=== PATIENT | female | born 1950 | race African-American/Black ===

== ENCOUNTER → 2016-03-12 | Outpatient (CLI) | payer MEDICARE, OTHER ==
--- NOTE | 2016-03-12 18:10 | WOMENS IMAGING REPORT ---
EXAM DESCRIPTION: BILAT SCREENING MAMMO W/CAD COMPLETED DATE/TIME: 03/12/2016 11:11 am REASON FOR STUDY: Z12.31 ROUTINE SCREENING MAMMO Z12.31 ENCNTR SCREEN MAMMOGRAM FOR MALIGNANT NEOPL ASM OF [place] COMPARISON: Multiple since 2008 TECHNIQUE: Standard craniocaudal and mediolateral oblique views of each breast recorded using [place] l acquisition. LIMITATIONS: None. FINDINGS: Findings present which are benign by mammographic criteria. No suspicious masses, calcifi cations or architectural distortion. Read with the assistance of CAD. .[facility] - R2 Cenova Version 1.3 .[facility] Imaging - R2 Cenova Version 1.3 .[facility] - R2 Cenova Version 2.4 .[facility] [place] - R2 Cenova Version 2.4 .[facility] - R2 Software Product Manager Version 9.2 Benign mammographic findings may include one or more of the following: Smooth masses, popcorn/rim/co arse calcifications, asymmetries, post-procedure changes, and lesions with long-standing stability. BREAST DENSITY: b. There are scattered areas of fibroglandular density. BIRAD: 2 BENIGN FINDING(S) RECOMMENDATION: ROUTINE SCREENING COMMENT: PATIENT NOTIFIED BY LETTER. The [employer] recommends an annual screening mammogram for women aged 40 years or over. Each patient will receive a reminder prior to the anniversary date of her mammogram. The [employer] (ACR) has developed recommendations for screening MRI of the breast s in certain patient populations, to be used in conjunction with mammography. Breast MRI surveillanc e may be appropriate for women with more than 20% lifetime risk of developing breast cancer as deter mined by genetic testing, significant family history of the disease, or history of mantle radiation f or Hodgkins Disease. ACR Practice Guidelines 2008. TECHNICAL DOCUMENTATION: FINDING NUMBER: (1) ASSESSMENT: (1) JOB ID: [id number] [employer]- All Rights Reserved
== END ==
LOC: WI 10:52
PROVIDERS: ATTEND Physician Assistant
DX: Z12.31 Encounter for screening mammogram for malignant neoplasm of breast (principal)
CPT/HCPCS: 77067; G0202

== ENCOUNTER → 2017-06-23 | Outpatient (CLI) | payer MEDICARE, OTHER ==
--- NOTE | 2017-06-24 09:03 | WOMENS IMAGING REPORT ---
EXAM DESCRIPTION: 3D SCREENING MAMMO BILAT COMPLETED DATE/TIME: 06/23/2017 11:08 am REASON FOR STUDY: SCREENING MAMMO Z12.31 ENCNTR SCREEN MAMMOGRAM FOR MALIGNANT NEOPLASM OF [place] COMPARISON: Multiple since 2008 TECHNIQUE: Standard craniocaudal and mediolateral oblique views of each breast recorded using digita l acquisition and breast tomosynthesis. LIMITATIONS: None. FINDINGS: Findings present which are benign by mammographic criteria. No suspicious masses, calcifi cations or architectural distortion. Pertinent benign findings: Benign calcifications bilaterally Read with the assistance of CAD. .[facility] - R2 Cenova Version 1.3 .[facility] Imaging - R2 Cenova Version 1.3 .[facility] - R2 Cenova Version 2.4 .[facility] [place] - R2 Cenova Version 2.4 .[facility] - R2 Vacuum Frame Operator Version 9.2 Benign mammographic findings may include one or more of the following: Smooth masses, popcorn/rim/co arse calcifications, asymmetries, post-procedure changes, and lesions with long-standing stability. IMPRESSION: BENIGN MAMMOGRAPHIC FINDINGS. BIRADS 2 BREAST DENSITY: b. There are scattered areas of fibroglandular density. BIRAD: 2 BENIGN FINDING(S) RECOMMENDATION: RECOMMENDATION: ROUTINE SCREENING Please continue yearly bilateral screening mammography/tomosynthesis in June 2018 COMMENT: The patient has been notified of the results by letter per SA requirements. Additional no tification policies are in place for contacting patient with suspicious or incomplete findings. Quality ID #[id number]: The [employer] recommends an annual screening mammogram for women aged 40 years or over. This facility utilizes a reminder system to ensure that all patients receive reminder letters, and/or direct phone calls for appointments. This includes reminders for routine scr eening mammograms, diagnostic mammograms, or other Breast Imaging Interventions when appropriate. Th is patient will be placed in the appropriate reminder system. The [employer] (ACR) has developed recommendations for screening MRI of the breast s in certain patient populations, to be used in conjunction with mammography. Breast MRI surveillanc e may be appropriate for women with more than 20% lifetime risk of developing breast cancer as deter mined by genetic testing, significant family history of the disease, or history of mantle radiation f or Hodgkins Disease. ACR Practice Guidelines 2008. DBT Technology DBT is a type of tomographic mammography. With conventional mammography, overlapping breast tissue ma y make lesions difficult to detect, even with good compression. DBT uses an x-ray tube that rotates a round the breast, taking images at different angles. These images are then combined to create thin sl ices of the breast that the radiologist can view as a 3D reconstruction. The LUX Assure unit can perform full-field digital mammograms (2D imaging); or DBT (3D imaging); or both, in a combination mode that quickly performs both the mammogram and the tomosynthesis scan while the breast is still compressed. PQRS 6045F: Fluoroscopic imaging is not utilized for breast tomosynthesis. TECHNICAL DOCUMENTATION: FINDING NUMBER: (1) ASSESSMENT: (1) JOB ID: [id number] [email or web address]- All Rights Reserved Reading location - IP/workstation name: [email or web address]
== END ==
LOC: WI 10:10
PROVIDERS: ATTEND Physician Assistant
DX: Z12.31 Encounter for screening mammogram for malignant neoplasm of breast (principal)
CPT/HCPCS: 77063; 77067

== ENCOUNTER 2018-02-09 20:23 | Emergency (ER) | payer MEDICARE, OTHER ==
[2018-02-09] MEDS ORDERED: ADENOSINE INJ/PF 6 MG/2 ML SDV IV ONE (21:05)
--- NOTE | 2018-02-09 21:06 | ER Document Report ---
ED General - General Chief Complaint: Palpitations Stated Complaint: POSSIBLE HIGH BLOOD PRESSURE Time Seen by Provider: 02/09/18 20:59 Mode of Arrival: Ambulatory Information source: Patient Notes: 67-year-old female with a history of hypertension, diabetes who presents to the emergency room with palpitations beginning at 6:45 PM tonight. Patient denies chest pain or shortness of breath. She was watching TV at the time. She does state she had an episode yesterday that lasted for a short period of time. TRAVEL OUTSIDE OF THE [place] IN LAST 30 DAYS: No - HPI Onset: Just prior to arrival Onset/Duration: Sudden Quality of pain: No pain Severity: None Pain Level: Denies Associated symptoms: denies: Chest pain, Fever, Shortness of breath Exacerbated by: Denies Relieved by: Denies Similar symptoms previously: Yes Recently seen / treated by doctor: No - Related Data Allergies/Adverse Reactions: No Known Allergies Allergy (Unverified 03/28/12 11:32) Past Medical History - General Information source: Patient - Social History Smoking Status: Never Smoker Cigarette use (# per day): No Chew tobacco use (# tins/day): No Frequency of alcohol use: None Drug Abuse: None Lives with: Family Family History: None Patient has suicidal ideation: No Patient has homicidal ideation: No - Past Medical History Cardiac Medical History: Reports: Hx Hypertension Denies: Hx Heart Attack Pulmonary Medical History: Denies: Hx Asthma EENT Medical History: Reports: Eyes - Cataract surgery Neurological Medical History: Denies: Hx Cerebrovascular Accident, Hx Seizures Endocrine Medical History: Reports: Hx Diabetes Mellitus Type 2 Renal/ Medical History: Reports: None Malignancy Medical History: Reports: None GI Medical History: Reports: None. Denies: Hx Hepatitis, Hx Hiatal Hernia, Hx Ulcer Musculoskeletal Medical History: Reports None Psychiatric Medical History: Reports: None Infectious Medical History: Reports: None. Denies: Hx Hepatitis Past Surgical History: Reports: Hx Hysterectomy. Denies: Hx Mastectomy, Hx Open Heart Surgery, Hx Pacemaker Review of Systems - Review of Systems Constitutional: denies: Chills, Fever EENT: No symptoms reported Cardiovascular: See HPI, Palpitations, Heart racing. denies: Chest pain Respiratory: No symptoms reported Gastrointestinal: No symptoms reported Genitourinary: No symptoms reported Female Genitourinary: No symptoms reported Musculoskeletal: No symptoms reported Skin: No symptoms reported Hematologic/Lymphatic: No symptoms reported Neurological/Psychological: No symptoms reported Physical Exam - Vital signs Vitals: Temp Pulse Resp BP Pulse Ox 97.7 F 145 H 20 149/101 H 95 02/09/18 20:28 02/09/18 20:28 02/09/18 20:28 02/09/18 20:28 02/09/18 20:28 Notes: Physical exam: GENERAL: She is alert and oriented x3. Her blood pressure is 149/101. Her pulse is 145-150.. HEAD: Atraumatic, normocephalic. EYES: Pupils equal round and reactive to light, extraocular movements intact, sclera anicteric, conjunctiva are normal. ENT: TMs normal, nares patent, oropharynx clear without exudates. Moist mucous membranes. NECK: Normal range of motion, supple without obvious mass or JVD. LUNGS: Breath sounds clear to auscultation bilaterally and equal. No wheezes rales or rhonchi. HEART: Tachycardia, no obvious murmur. ABDOMEN: Soft, normoactive bowel sounds. No tenderness to palpation. No guarding, no rebound. No masses appreciated. EXTREMITIES: Normal range of motion, no pitting or edema. No clubbing or cyanosis. NEUROLOGICAL: Cranial nerves II through XII grossly intact. Normal speech, moving all extremities. PSYCH: Normal mood, normal affect. SKIN: Warm, Dry, normal turgor, no rashes or lesions noted. Course - Vital Signs Vital signs: Temp Pulse Resp BP Pulse Ox 97.7 F 145 H 37 H 182/96 H 91 L 02/09/18 20:28 02/09/18 20:28 02/09/18 23:04 02/09/18 23:14 02/09/18 23:04 - Laboratory Result Diagrams: 02/09/18 21:15 02/09/18 21:15 Laboratory results interpreted by me: 02/09/18 02/09/18 21:15 21:15 RDW 14.3 H Carbon Dioxide 21 L Glucose 309 H Creatine Kinase 204 H - Diagnostic Test Radiology reviewed: Image reviewed, Reports reviewed - cxr: no infiltrates. Procedures - Additional Procedures Cardioversion Time performed: 21:31 Additional Procedures: Cardioversion/defib Notes: 02/09/18 21:31 Valsalva maneuver attempted without success. Adenosine 6 mg IV push: With conversion to normal sinus rhythm. Patient currently without pain, shortness of breath. Blood pressure stable. Repeat EKG shows normal sinus rhythm with a ventricular rate of 92, no acute ST- T wave changes Discharge - Discharge Clinical Impression: SVT Condition: Stable Disposition: HOME, SELF-CARE Instructions: Paroxysmal Supraventricular Tachycardia ([facility]) Additional Instructions: As we discussed, your labs look good. Were given a medicine to slow the heart rate and it worked to bring your rhythm back to normal. I did discuss the lab work with Dr. Singleton and he wants you to go to the office first thing in the morning. Return to the emergency room for any chest pain, shortness of breath or worsening palpitations. Referrals: RODNEY SINGLETON MD [Primary Care Provider] - Follow up tomorrow (Dr. Singleton wants you to come to the office first thing in the morning.)
[2018-02-09 21:23] LABS: ABSOLUTE BASOPHILS # (AUTO) 0.1 10^3/uL (0.0-0.2); ABSOLUTE EOSINOPHILS # (AUTO) 0.1 10^3/uL (0.0-0.6); ABSOLUTE LYMPHOCYTES (AUTO) 3.2 10^3/uL (0.5-4.7); ABSOLUTE MONOCYTES (AUTO) 0.8 10^3/uL (0.1-1.4); ABSOLUTE NEUT (AUTO) 5.7 10^3/uL (1.7-8.2); EOSINOPHILS % (AUTO) 0.9 % (0-6); HEMATOCRIT 38.9 % (36.0-47.0); HEMOGLOBIN 13.1 g/dL (12.0-15.5); LYMPHOCYTES % (AUTO) 32.6 % (13-45); MEAN CORPUSCULAR HGB CONC 33.8 g/dL (32.0-36.0); MEAN CORPUSCULAR VOLUME 80 fl (80-97); MONOCYTES % (AUTO) 7.6 % (3-13); PLATELET COUNT 383 10^3/uL (150-450); RED BLOOD COUNT 4.87 10^6/uL (3.72-5.28); RED CELL DISTRIBUTION WIDTH 14.3 % (11.5-14.0); SEGMENTED NEUTROPHILS % (AUTO) 57.9 % (42-78); TOTAL CELLS COUNTED % (AUTO) 100 %; WHITE BLOOD COUNT 9.9 10^3/uL (4.0-10.5)
[2018-02-09] MEDS ORDERED: NORMAL SALINE 1000 ML 1,000 ML IV ONE (21:26)
[2018-02-09] MEDS ORDERED: METOPROLOL TARTRATE PF/INJ 5 MG/5 ML SDV IV ONE (21:33)
--- NOTE | 2018-02-09 21:38 | RADIOLOGY REPORT (SQ) ---
XR CHEST 1 VIEW HISTORY: Palpitations. COMPARISON: 03/21/2015 FINDINGS: The heart size is mildly enlarged. The lungs are clear. No pleural effusion or pneumothorax is identified. IMPRESSION: No acute cardiopulmonary abnormality.
[2018-02-09 21:47] LABS: ALANINE AMINOTRANSFERASE 31 U/L (9-52); ALBUMIN 4.5 g/dL (3.5-5.0); ALKALINE PHOSPHATASE 85 U/L (38-126); ANION GAP 13 (5-19); ASPARTATE AMINO TRANSFERASE 33 U/L (14-36); BILIRUBIN,DIRECT 0.2 mg/dL (0.0-0.4); BILIRUBIN,TOTAL 0.3 mg/dL (0.2-1.3); BLOOD UREA NITROGEN 14 mg/dL (7-20); CALCIUM 9.2 mg/dL (8.4-10.2); CARBON DIOXIDE 21 mmol/L (22-30); CHLORIDE 107 mmol/L (98-107); CREATINE KINASE 204 U/L (30-135); GLUCOSE 309 mg/dL (75-110); POTASSIUM 3.8 mmol/L (3.6-5.0); SODIUM 141.1 mmol/L (137-145); TOTAL PROTEIN 7.4 g/dL (6.3-8.2)
[2018-02-09 21:58] LABS: CREATINE KINASE MB 1.77 ng/mL (<4.55)
[2018-02-09 21:59] LABS: TROPONIN I < 0.012 ng/mL
[2018-02-09 22:04] LABS: FREE T3 3.24 pg/mL (2.77-5.27); FREE T4 (FREE THYROXINE) 1.12 ng/dL (0.78-2.19)
[2018-02-09 22:18] LABS: THYROID STIMULATING HORMONE 2.67 uIU/mL (0.47-4.68)
[2018-02-09 23:15] VITALS: BP 182/96
--- NOTE | 2018-02-10 07:50 | EKG REPORT ---
SEVERITY:- ABNORMAL ECG - SINUS RHYTHM PROBABLE INFERIOR INFARCT, AGE INDETERMINATE : Confirmed by: Lorne Robles MD 10-Feb-2018 07:49:14
--- NOTE | 2018-02-10 07:51 | EKG REPORT ---
SEVERITY:- ABNORMAL ECG - JUNCTIONAL TACHYCARDIA REPOLARIZATION ABNORMALITY, PROB RATE RELATED : Confirmed by: Lorne Robles MD 10-Feb-2018 07:49:30
== END 2018-02-09 23:28 | disposition home or self-care (01) ==
LOC: ER 20:23
DX: I47.1 Supraventricular tachycardia (principal); R00.2 Palpitations; I10 Essential (primary) hypertension; E11.9 Type 2 diabetes mellitus without complications
CPT/HCPCS: 93005; 99285; 96374; 96375; 36415; 84439; 82553; 82550; 84443; 85025; 80053; 84484; 84481; 71045; 93010; J3490; J7030; J0153

== ENCOUNTER → 2018-08-05 | Outpatient (CLI) | payer MEDICARE, OTHER ==
--- NOTE | 2018-08-11 14:08 | WOMENS IMAGING REPORT ---
EXAM DESCRIPTION: 3D SCREENING MAMMO BILAT COMPLETED DATE/TIME: 08/05/2018 11:21 am REASON FOR STUDY: Z12.31 ROUTINE 3D BILATERAL SCREENING Z12.31 ENCNTR SCREEN MAMMOGRAM FOR MALIGNAN T NEOPLASM OF [place] COMPARISON: Multiple since 2008 EXAM PARAMETERS: Views: Standard craniocaudal and mediolateral oblique views of each breast recorded using digital acquisition and breast tomosynthesis. Read with the assistance of CAD. .[facility] - [employer] Operator Version 9.2 LIMITATIONS: None. FINDINGS: No suspicious masses, suspicious calcifications or architectural distortion. No areas of c oncern. IMPRESSION: NEGATIVE MAMMOGRAM. BIRADS 1. BREAST DENSITY: b. There are scattered areas of fibroglandular density. BIRAD: ASSESSMENT: 1 NEGATIVE RECOMMENDATION: ROUTINE SCREENING COMMENT: The patient has been notified of the results by letter per MQSA requirements. Additional no tification policies are in place for contacting patient with suspicious or incomplete findings. Quality ID #225: The [employer] recommends an annual screening mammogram for women aged 40 years or over. This facility utilizes a reminder system to ensure that all patients receive reminder letters, and/or direct phone calls for appointments. This includes reminders for routine scr eening mammograms, diagnostic mammograms, or other Breast Imaging Interventions when appropriate. Th is patient will be placed in the appropriate reminder system. TECHNICAL DOCUMENTATION: FINDING NUMBER: (1) ASSESSMENT: (1) JOB ID: [id number] [employer]- All Rights Reserved Reading location - IP/workstation name: [email or web address]
== END ==
LOC: WI 10:49
PROVIDERS: ATTEND Family Medicine
DX: Z12.31 Encounter for screening mammogram for malignant neoplasm of breast (principal)
CPT/HCPCS: 77063; 77067

== ENCOUNTER 2019-02-02 06:57 | Day surgery (SDC) | payer MEDICARE, OTHER ==
[2019-02-02] MEDS ORDERED: PROPOFOL INJ 200 MG/20 ML VIAL IV ONE (07:28)
--- NOTE | 2019-02-02 09:18 | Discharge Summary ---
Discharge Summary (SDC) - Discharge Final Diagnosis: Colon polyps Date of Surgery: 02/02/19 Discharge Date: 02/02/19 Condition: Good Treatment or Instructions: [facility] [place] [id number] POST ENDOSCOPY DISCHARGE INSTRUCTIONS 1. Diet: Start clear liquids that a regular diet as tolerated. 2. Resume all preoperative medications. All oral anticoagulants and aspirins can be resumed 24 hours after procedure. 3. If a polypectomy was performed some bleeding per rectum may occur. This should stop within 3 days. If not, please contact the office. 4. If you had a colonoscopy you may experience some bloating and delayed return of normal bowel function for several days, your regular bowel movement pattern should resume within a week. 5. Please contact [facility] at to make an appointment with Dr. Downey for 1 to 3 weeks following procedure. 6. If you have any questions or concerns regarding your care,treatment plan or follow up, please contact our office. 7. Per clinical guidelines we recommend you undergo a repeat colonoscopy in 3-5 years. Referrals: RODNEY SINGLETON MD [Primary Care Provider] - Discharge Diet: As Tolerated Discharge Activity: Activity As Tolerated Home Care Assistance: None Needed Report the Following to Your Physician Immediately: Shortness of Breath, In crease in Pain, Fever over 101 Degrees
--- NOTE | 2019-02-02 09:23 | Operative Report ---
Operative Report DATE OF SURGERY: 02/02/19 PREOPERATIVE DIAGNOSIS: Personal history of colon polyps POSTOPERATIVE DIAGNOSIS: 1. Sigmoid diverticulosis. 2. Small polyps of the sigmoid colon, and anal canal OPERATION: 1. Total colonoscopy to cecum with photodocumentation. 2. Sigmoid colon and anal canal polypectomy SURGEON: CARL BAINS ANESTHESIA: LMAC TISSUE REMOVED OR ALTERED: Polyps COMPLICATIONS: None ESTIMATED BLOOD LOSS: Scant INTRAOPERATIVE FINDINGS: See below PROCEDURE: Obtaining informed consent the patient was taken from the preoperative holding area to the main endoscopy suite where monitoring devices were attached to the patient. Plan and surgical timeout were conducted The patient was placed in the left lateral decubitus position with knees to chest. A perianal examination was performed. There was no visible or palpable anorectal pathology. Sphincter tone was felt to be normal. The flexible adult colonoscope was advanced through the anal rectal canal, all the way to the cecum. Visualization of the cecum was achieved by demonstration of the ileocecal valve, the appendiceal orifice and transillumination of the anterior abdominal wall. This was an excellent study on the well-prepped bowel. The colonoscope was withdrawn slowly and methodically checked and the mucosa carefully. There was no evidence of tumor, stricture, bleeding; 2 polyps were identified 1 at 35 cm from the anal verge, and one in the anal rectal region. Both were small and removed with cold forceps biopsy. Bleeding minimal. Specimen sent for pathologic analysis. There was moderate volume of diverticulosis of the sigmoid colon, but no evidence of stricture. The scope was slowly withdrawn through the anal rectal canal. Complete visualization of the rectum was achieved with photodocumentation. The scope was withdrawn to the patient's anus. The patient tolerated the procedure well and was taken to the recovery area in stable condition. Per surveillance guidelines, patient will be an appropriate candidate for follow-up colonoscopy in [3-5] years.
[2019-02-02 09:49] VITALS: BP 162/75
== END 2019-02-02 10:05 | disposition home or self-care (01) ==
LOC: END 06:57
PROVIDERS: ATTEND Surgery
DX: Z12.11 Encounter for screening for malignant neoplasm of colon (principal); K57.30 Diverticulosis of large intestine without perforation or abscess without bleeding; D12.7 Benign neoplasm of rectosigmoid junction; Z86.010 Personal history of colon polyps; E11.9 Type 2 diabetes mellitus without complications; I10 Essential (primary) hypertension; E78.00 Pure hypercholesterolemia, unspecified; Z79.84 Long term (current) use of oral hypoglycemic drugs; Z79.82 Long term (current) use of aspirin; Z79.899 Other long term (current) drug therapy; Z86.73 Personal history of transient ischemic attack (TIA), and cerebral infarction without residual deficits
CPT/HCPCS: 45380; 82962; 88305 ×2; 00811; J2704; 811

== ENCOUNTER → 2019-09-07 | Outpatient (CLI) | payer MEDICARE, OTHER ==
--- NOTE | 2019-09-07 13:48 | WOMENS IMAGING REPORT ---
EXAM DESCRIPTION: 3D SCREENING MAMMO BILAT IMAGES COMPLETED DATE/TIME: 09/07/2019 1:29 pm REASON FOR STUDY: Z12.31 ENCNTR SCREEN MAMMOGRAM FOR MALIGNANT NEOPLASM OF BREAST Z12.31 ENCNTR SCR EEN MAMMOGRAM FOR MALIGNANT NEOPLASM OF [place] COMPARISON: 08/05/2018 and 06/23/2017. EXAM PARAMETERS: Standard craniocaudal and mediolateral oblique views of each breast recorded using digital acquisition and breast tomosynthesis. Read with the assistance of CAD. .[facility] - [employer] Supervisor Version 9.2 LIMITATIONS: None. FINDINGS: RIGHT BREAST MASSES: No suspicious masses. CALCIFICATIONS: Cluster of calcifications in the deep central breast, slightly increased, located 10 cm from the nipple. There is another cluster of calcifications in the deep breast near the chest wal l, visualized on the MLO image, located 14 cm from the nipple. Not present on prior studies and appe ars to be new. ARCHITECTURAL DISTORTION: None. ASYMMETRY: None noted. OTHER: No other significant findings. LEFT BREAST MASSES: No suspicious masses. CALCIFICATIONS: No new or suspicious calcifications. ARCHITECTURAL DISTORTION: None. ASYMMETRY: None noted. OTHER: No other significant findings. IMPRESSION: TWO CLUSTERS OF CALCIFICATIONS IN THE RIGHT BREAST DESCRIBED, ONE WITH INCREASING HSA CIFICATIONS AND THE OTHER APPEARS TO BE NEW. STABLE MAMMOGRAPHIC APPEARANCE OF THE LEFT BREAST. 0 Incomplete: Needs Additional Imaging Evaluation and/or prior Mammograms for Comparison. BREAST DENSITY: b. There are scattered areas of fibroglandular density. BIRAD: ASSESSMENT: 0 Incomplete: Needs Additional Imaging Evaluation and/or prior Mammograms for C omparison. RECOMMENDATION: RECOMMENDED FOLLOW-UP: Recommend additional evaluation with magnification views of t he right breast. Recommend routine screening mammography of the left breast. The patient will be contacted for additional imaging. COMMENT: The patient has been notified of the results by letter per SA requirements. Additional no tification policies are in place for contacting patient with suspicious or incomplete findings. Quality ID #225: The [employer] recommends an annual screening mammogram for women aged 40 years or over. This facility utilizes a reminder system to ensure that all patients receive reminder letters, and/or direct phone calls for appointments. This includes reminders for routine scr eening mammograms, diagnostic mammograms, or other Breast Imaging Interventions when appropriate. Th is patient will be placed in the appropriate reminder system. TECHNICAL DOCUMENTATION: FINDING NUMBER: (1) ASSESSMENT: (1) JOB ID: [id number] [employer]- All Rights Reserved Reading location - IP/workstation name: [email or web address]
== END ==
LOC: WI 13:06
PROVIDERS: ATTEND Physician Assistant
DX: Z12.31 Encounter for screening mammogram for malignant neoplasm of breast (principal); R92.0 Mammographic microcalcification found on diagnostic imaging of breast
CPT/HCPCS: 77063; 77067

== ENCOUNTER → 2019-09-20 | Outpatient (CLI) | payer MEDICARE, OTHER ==
--- NOTE | 2019-09-20 11:34 | WOMENS IMAGING REPORT ---
EXAM DESCRIPTION: RIGHT DIAGNOSTIC MAMMO W/CAD IMAGES COMPLETED DATE/TIME: 09/20/2019 11:17 am REASON FOR STUDY: R92.1 MAMMOGRAPHIC CALCIFCN FOUND ON DIAGNOSTIC IMAGING OF BREAST R92.1 MAMMOGRAP HIC CALCIFCN FOUND ON DIAGNOSTIC IMAGING OF B COMPARISON: 08/08/2019, 08/05/2018, 06/23/2017, 03/12/2016, 02/08/2015 and 02/07/2014 EXAM PARAMETERS: Full field mediolateral and exaggerated craniocaudal images are supplemented with s pot magnification views in the CC, XCC, and ML projections. LIMITATIONS: None. FINDINGS: BREAST LATERALITY: right MASSES: No suspicious masses. CALCIFICATIONS: Calcifications on screening mammography appears smoothly marginated and coarse on spo t magnification views. The more anterior grouping has been present to some degree dating back to 201 4. The more posterior group demonstrates a peripheral configuration around a subtle nodular density, suggesting involuting fibroadenoma. ARCHITECTURAL DISTORTION: None. ASYMMETRY: None noted. OTHER: No other significant findings. 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 No evidence of malignancy on today's examination. BREAST DENSITY: b. There are scattered areas of fibroglandular density. BIRAD: ASSESSMENT: 2 Benign findings. RECOMMENDATION: RECOMMENDED FOLLOW UP: Birads 1 or 2: The patient should resume routine screening . SPECIFIC INTERVENTION/IMAGING/CONSULTATION RECOMMENDED:No additional intervention/ imaging/consultati on needed at this time. COMMUNICATION:The imaging findings were not discussed with the patient. Her referring provider has be en notified of the findings. COMMENT: The patient has been notified of the results by letter per SA requirements. Additional no tification policies are in place for contacting patient with suspicious or incomplete findings. Quality ID #225: The [employer] recommends an annual screening mammogram for women aged 40 years or over. This facility utilizes a reminder system to ensure that all patients receive reminder letters, and/or direct phone calls for appointments. This includes reminders for routine scr eening mammograms, diagnostic mammograms, or other Breast Imaging Interventions when appropriate. Th is patient will be placed in the appropriate reminder system. TECHNICAL DOCUMENTATION: FINDING NUMBER: (1) ASSESSMENT: (1) JOB ID: [id number] [email or web address]- All Rights Reserved Reading location - IP/workstation name: [email or web address]
== END ==
LOC: WI 10:50
PROVIDERS: ATTEND Physician Assistant
DX: R92.1 Mammographic calcification found on diagnostic imaging of breast (principal)
CPT/HCPCS: 77065